=== PATIENT | female | born 1950 | race Caucasian/White ===

== ENCOUNTER → 2023-11-10 13:36 | Outpatient (REF) | payer MEDICARE, OTHER, SELFPAY | LOC: RAD 13:36 | PROVIDERS: ATTENDING PHYSICIAN Internal Medicine Geriatric Medicine | DX: J20.9 Acute bronchitis, unspecified (principal) | CPT/HCPCS: 71046 ==

== ENCOUNTER 2023-12-27 12:56 | Emergency (ER) | payer MEDICARE, OTHER, SELFPAY ==
[2023-12-27 12:58] VITALS: BP 177/86
--- NOTE | 2023-12-27 13:37 | ED.GENMED ---
History of Present Illness
General
Chief Complaint: Head Injury
Source: patient and spouse
Exam Limitations: none
Time Seen by Provider: 12/27/23 13:18
Nursing documentation reviewed up to this point in time: agreed with
Travel History
Have you had any contact with someone who has COVID-19?: No
Do you have any symptoms of coronavirus? Fever > 100 degrees, chills, cough, shortness of breath, sore throat, loss of taste or smell, muscle aches, or headache?: No
History of Present Illness
History of Present Illness:
Patient is a 73-year-old female who presents to the ER with for evaluation of fall. Patient reports she tripped and fell on concrete 20 minutes ago landed on her head. She denies loss of consciousness. He did assist her up with patient's
grandchild. She denies any nausea vomiting . She does have a headache. SHe has some chronic neck issues and radiculopathy and has been followed by pain management.
She c/o feeling sore in upper back.
Past History
Past History
ED Past Medical History: Other (Prediabetes, hyperlipidemia)
Social History
Tobacco: Former smoker
Alcohol: Occasional
Family History
Family History: Other (Diabetes, coronary disease, breast cancer)
Review of Systems
Review of Systems
Allergies reviewed?: Yes
All Other Systems: ROS reviewed and negative except as documented in HPI and ROS
Constitutional: Reports no symptoms
ABD/GI: Denies nausea or vomiting
Musculoskeletal: Reports other (sore to neck/back )
Skin: Reports no symptoms
Neurological: Reports headache and other (hit head no loc )
Phy Exam
General Physical Exam
General Presentation: no apparent distress
General age: appears stated age
General Skin: warm and dry
General Habitus: normal
General Mental: alert
General Hydration: appears well hydrated
Neurological Exam
Neurological Exam: alert, oriented x3 and speech normal
[place] Coma Scale
Eye Opening: Spontaneous
Verbal Response: Oriented
Motor Response: Obeys Commands
GCS Total Score: 15
Cerebellar
Cerebellar Function: normal finger to nose
Musculoskeletal Exam
Musculoskeletal Exam: other (+ left frontal hematoma , no bony c spine tenderness tender throughout the upper trapezius region)
Skin Exam
Skin Exam: normal color and warm/dry
Psychiatric Exam
Psychiatric Exam: normal mood/affect
Course
Orders/Labs/Results
Orders:
Orders
12/27/23 13:[address] [CT Head W/o Iv Contrast] Urgent
Comment:
Reason For Exam: head injury d/t fall on concrete
12/27/23 14:10
Acetaminophen [Tylenol] 650 mg PO NOW STA
12/27/23 14:25
Cyclobenzaprine HCl [Flexeril] 10 mg PO NOW STA
Vital Signs
Initial and Last Documented VS:
Initial Vital Signs
Temp Pulse Resp BP Pulse Ox
99.1 F 85 20 177/86 100
12/27/23 12:58 12/27/23 12:58 12/27/23 12:58 12/27/23 12:58 12/27/23 12:58
Last Documented Vital Signs
Temp Pulse Resp BP Pulse Ox
99.1 F 78 19 145/90 100
12/27/23 12:58 12/27/23 14:47 12/27/23 14:47 12/27/23 14:47 12/27/23 12:58
MDM/Problems Addressed
Differential Diagnosis Includes:
not limited to:hematoma , intracranial injury
MDM/Problems Addressed:
Patient is a 73-year-old female who describes trip and fall. Patient is on aspirin only no other blood thinners. Patient has a significant frontal hematoma but denies any loss of consciousness no nausea vomiting. Patient did have a mild headache.
She is awake alert no acute distress with a normal neurologic exam. She has chronic neck issues and is concerned about having some muscular neck pain. She has no bony cervical spine tenderness on exam with normal neurological exam including
normal strength. She has been on cyclobenzaprine in the past and does request this will send a prescription to the pharmacy.
Patient is awake alert ambulatory with a steady gait here no acute distress stable for discharge home.
*Radiology
Radiology exam reviewed: radiology read reviewed
*Pulse Oximetry
Patient hypoxic: no
*Critical Care Note
Total Time (30-74mins, 75-104mins- exclusive of procedures): Not Applicable
ED Attending Note
-
Portions of this chart may have been created with voice recognition software.� Occasional wrong word or��sound alike� substitutions may have occurred due to the inherent limitations of voice recognition software.
Discharge Plan
Departure
Patient Disposition: Home (Routine Discharge)
Date of Disposition: 12/27/23
Time of Disposition: 14:12
Patient with high blood pressure during this ER visit?: Yes
Condition: Fair
Covid-19: Not Applicable
Discharge Problem:
Hematoma, Head injury
Instructions: Head Injury in Adults (DC), Contusion (DC)
Prescriptions:
New
cyclobenzaprine 10 mg tablet
10 mg PO TID PRN (Reason: muscle spasm) Qty: 10 0RF
Referrals:
UNKNOWN - PT DOES,NOT KNOW [Unknown Provider] -
Activity Restrictions/Additional Instructions:
Ice the affected area for the first 24 hours 20 minutes at a time several times a day. You may take Tylenol for discomfort. A prescription for Flexeril was sent to your pharmacy take as directed. This will cause drowsiness. Return if any
worsening of symptoms. follow-up with your family doctor the next 2 days reevaluation.
Discharge Date and Time
Print Language: FRISIAN
[2023-12-27] MEDS: TYLENOL 650 MG PO (14:20)
[2023-12-27] MEDS: FLEXERIL 10 MG PO (14:38)
[2023-12-27 14:47] VITALS: BP 145/90
== END 2023-12-27 14:20 | disposition home or self-care (01) ==
LOC: EMR 12:56
PROVIDERS: EMERGENCY PHYSICIAN Emergency Medicine; FAMILY PHYSICIAN Internal Medicine Geriatric Medicine
DX: S09.90XA Unspecified injury of head, initial encounter (principal); S00.03XA Contusion of scalp, initial encounter; M54.6 Pain in thoracic spine; M54.2 Cervicalgia; W01.0XXA Fall on same level from slipping, tripping and stumbling without subsequent striking against object, initial encounter; R03.0 Elevated blood-pressure reading, without diagnosis of hypertension; R73.03 Prediabetes; E78.5 Hyperlipidemia, unspecified; K21.9 Gastro-esophageal reflux disease without esophagitis; E03.9 Hypothyroidism, unspecified; Z87.891 Personal history of nicotine dependence
CPT/HCPCS: 99284; 70450

== ENCOUNTER 2024-01-06 17:00 | Emergency (ER) | payer MEDICARE, OTHER, SELFPAY ==
[2024-01-06 17:01] VITALS: BP 118/61
--- NOTE | 2024-01-06 18:23 | ED.GENMED ---
History of Present Illness
General
Chief Complaint: Headache
Source: patient, records and spouse
Exam Limitations: none
Time Seen by Provider: 01/06/24 17:41
Nursing documentation reviewed up to this point in time: agreed with
Travel History
Have you had any contact with someone who has COVID-19?: No
Do you have any symptoms of coronavirus? Fever > 100 degrees, chills, cough, shortness of breath, sore throat, loss of taste or smell, muscle aches, or headache?: No
History of Present Illness
History of Present Illness:
73-year-old female with a past medical history of hyperlipidemia, diabetes, GERD who presents to the emergency room accompanied by her for evaluation of headache. Of note patient was seen in this emergency room 12/27/2023 after mechanical
fall from ground-level with significant head trauma�at that time she had a CT head which was negative and was discharged home. She has had some facial ecchymosis which is improving. She says she has had a mild headache since the fall. Today she
says she took a nap and woke up around 2:30 PM with acute worsening of the headache�she describes an intense pressure sensation in her head. She came to the emergency room to be reassessed. She denies any nausea or vomiting. She says she has
chronic neck pain but does not have any acute change in this. She denies any other complaints today. She denies any additional falls or trauma.
Past History
Past History
ED Past Medical History: Other (Prediabetes, hyperlipidemia)
Social History
Tobacco: Former smoker
Alcohol: Occasional
Family History
Family History: Other (Diabetes, coronary disease, breast cancer)
Review of Systems
Review of Systems
All Other Systems: ROS reviewed and negative except as documented in HPI and ROS
Constitutional: Denies fever or chills
EENT: Denies sore throat
Respiratory: Denies trouble breathing
Cardiac: Denies chest pain
ABD/GI: Denies abdominal pain, nausea or vomiting
: Denies flank pain
Musculoskeletal: Reports neck pain (Chronic); Denies back pain
Neurological: Reports headache; Denies dizzy, weakness or numbness
Phy Exam
Physical Exam
Physical Exam:
General: Awake, alert, oriented x3; no acute distress
Head: Normocephalic, old appearing/improving periorbital ecchymosis as well as resolving forehead contusion/hematoma
Eyes: Conjunctiva normal, EOMI, pupils equal round and reactive to light bilaterally
Throat: Airway intact, handling secretions, tongue atraumatic
Neck: Trachea midline, no point tenderness in the midline cervical spine
Lungs: Clear to auscultation bilaterally, no wheezing, rales, rhonchi; occasional coughing
Heart: Regular rate and rhythm, no murmurs, gallops, or rubs
Abd: Soft, non distended, nontender
Neuro: Cranial nerves intact, speech is fluid, no motor or sensory deficits
Extremities: Warm and well-perfused
Scores
Heart Failure Risk
Heart Failure Risk Score: Not Applicable
Heart Score for Chest Pain Patients
STEMI patient?: Not applicable
Withdrawal Assessment of Alcohol
Withdrawal Assessment Completed?: Not applicable
Course
Orders/Labs/Results
Orders:
Orders
01/06/24 18:14
CT Cervical Spine W/o Iv Contr Urgent
Comment:
Reason For Exam: worsening headache s/p fall
CT Head W/o Iv Contrast Urgent
Comment:
Reason For Exam: worsening headache s/p fall
01/06/24 20:02
Acetaminophen [Tylenol] 1,000 mg PO NOW STA
Ketorolac [Toradol] 30 mg IM NOW STA
Vital Signs
Initial and Last Documented VS:
Initial Vital Signs
Temp Pulse Resp BP Pulse Ox
36.8 C 75 20 118/61 96
01/06/24 17:01 01/06/24 17:01 01/06/24 17:01 01/06/24 17:01 01/06/24 17:01
Last Documented Vital Signs
Temp Pulse Resp BP Pulse Ox
37.1 C 82 16 119/53 98
01/06/24 19:30 01/06/24 20:33 01/06/24 20:33 01/06/24 20:33 01/06/24 20:33
MDM/Problems Addressed
Differential Diagnosis Includes:
Delayed hemorrhage, concussion, high cervical spine injury, migraine, tension headache, dehydration, subarachnoid hemorrhage
MDM/Problems Addressed:
73-year-old female presents for evaluation of headache�had a fall 12/26 and was evaluated with CT head which was negative; has had mild headache since and had acute worsening at 2:30 PM today. Vital signs are normal here. Exam as above. Will check
CT head to rule out any signs of delayed bleed or subarachnoid hemorrhage (onset within 6 hours of presentation here, CT head should be highly sensitive for subacute subarachnoid hemorrhage). Will check CT of cervical spine as this was not
evaluated previously to rule out any high cervical spine fracture which might trigger her headache although she has no motor or sensory deficits in her extremities and denies any change in her neck pain. Will monitor closely reassess after the
above.
CT head and cervical spine negative for any acute pathology. Clinical reassessment patient still awake and alert but she is still complaining of headache. Will trial some Toradol and reassess.
After IM Toradol patient says her headache is greatly improved she is feeling much better. I think she is stable for discharge. Suspect likely mild concussion given her recent trauma. Spoke to her about brain rest, Tylenol/Motrin as needed.
Provided referral to neurology as an outpatient. Patient is very comfortable with this plan. All questions answered.
Chronic conditions affecting care:
Chronic neck pain
*Radiology
Radiology exam reviewed: radiology read reviewed
*Pulse Oximetry
Patient hypoxic: no
*Critical Care Note
Total Time (30-74mins, 75-104mins- exclusive of procedures): Not Applicable
Data Reviewed
Review of Other/Old Records Reveals: Records and Radiology Studies
Source: patient, records and spouse
ED Attending Note
-
Portions of this chart may have been created with voice recognition software.� Occasional wrong word or��sound alike� substitutions may have occurred due to the inherent limitations of voice recognition software.
Discharge Plan
Departure
Patient Disposition: Home (Routine Discharge)
Date of Disposition: 01/06/24
Time of Disposition: 21:27
Patient with high blood pressure during this ER visit?: No
Discharge Problem:
Headache, Concussion
Instructions: Headache, Adult (DC), Concussion, Adult ED
Prescriptions:
No Action
cyclobenzaprine 10 mg tablet
10 mg PO TID PRN (Reason: muscle spasm) Qty: 10 0RF
Referrals:
Blanquita Cosme DO [Active] - Call in 1-3 days for appt (Neurology)
Dave Michele MD [Family Provider] - Follow up in 2-3 days
Activity Restrictions/Additional Instructions:
Thank you for visiting the Emergency Department at [facility].
1. Please schedule a follow up appointment as directed. Call first thing tomorrow morning to make an appointment.
2. If indicated, please take your medications as instructed and indicated on discharge paperwork.
3. If any of your symptoms do not improve, or persist, or become more severe within 6-12 hours, please return to the emergency department for further care.
4. Please return to the emergency department if you develop a headache, neck pain/stiffness, fever greater than 100.4F, chest pain, shortness of breath, persistent nausea, vomiting, slurred speech, difficulty walking, numbness/tingling, weakness,
signs of infection or any other symptoms that are worrisome to you.
Please call [phone] if you have any questions.
Interventions
Interventions:
*Risk Screen - Suicide Last Done: 01/06/24 17:01
*General Assessment Last Done: 01/06/24 17:01
*Neglect/Abuse Screening Last Done: 01/06/24 17:01
*ED COVID-19 Vaccine History Last Done: 01/06/24 18:30
ED- Neurological Assessment Last Done: 01/06/24 19:31
Discharge Date and Time
Print Language: MOSOTHO
[2024-01-06 18:29] VITALS: BMI 26.4
[2024-01-06 19:30] VITALS: BP 122/64
[2024-01-06] MEDS: TYLENOL 1000 MG PO (20:19)
[2024-01-06] MEDS: TORADOL 30 MG IM (20:29)
[2024-01-06 20:33] VITALS: BP 119/53
[2024-01-06 21:51] VITALS: BP 116/61
== END 2024-01-06 21:56 | disposition home or self-care (01) ==
LOC: EMR 17:00
PROVIDERS: EMERGENCY PHYSICIAN Emergency Medicine; FAMILY PHYSICIAN Internal Medicine Geriatric Medicine
DX: R51.9 Headache, unspecified (principal); S06.0XAA Concussion with loss of consciousness status unknown, initial encounter; W19.XXXA Unspecified fall, initial encounter; E78.00 Pure hypercholesterolemia, unspecified; E11.9 Type 2 diabetes mellitus without complications; K21.9 Gastro-esophageal reflux disease without esophagitis; G89.29 Other chronic pain; Z80.3 Family history of malignant neoplasm of breast; Z82.49 Family history of ischemic heart disease and other diseases of the circulatory system; Z83.3 Family history of diabetes mellitus; Z87.891 Personal history of nicotine dependence
CPT/HCPCS: 99284; 96372; 70450; 72125

== ENCOUNTER → 2024-01-07 07:01 | Outpatient (REF) | payer MEDICARE, OTHER, SELFPAY | LOC: RAD 07:01 | PROVIDERS: ATTENDING PHYSICIAN Internal Medicine Geriatric Medicine | DX: R05.3 Chronic cough (principal); R91.8 Other nonspecific abnormal finding of lung field; Z87.898 Personal history of other specified conditions | CPT/HCPCS: 71250 ==

== ENCOUNTER → 2024-02-09 09:38 | Outpatient (REF) | payer MEDICARE, OTHER, SELFPAY ==
--- NOTE | 2024-02-09 10:55 | CARDSERVDEF ---
Echocardiogram with Definity completed after protocol screening completed. Allergies verified.
Patent IV site: __20 P new start 1st attempt LAC___
IV site flushed with 0.9% NaCl pre and post administration.
Diluted bolus method utilized to enhance visualization of ventricular beck.
Here for definity stress echo.
Total volume given: ___4.0 and 2.0 ml in divided doses
Patient tolerated all procedures well without complications.
== END ==
LOC: RCS 09:38
PROVIDERS: ATTENDING PHYSICIAN Internal Medicine Cardiovascular Disease; FAMILY PHYSICIAN Internal Medicine Geriatric Medicine
DX: I25.10 Atherosclerotic heart disease of native coronary artery without angina pectoris (principal); R07.89 Other chest pain
CPT/HCPCS: 93017; 93350; Q9957

== ENCOUNTER → 2025-05-16 13:00 | Outpatient (REF) | payer MEDICARE, OTHER, SELFPAY | LOC: REG 13:00 | PROVIDERS: ATTENDING PHYSICIAN Internal Medicine Geriatric Medicine | DX: R05.3 Chronic cough (principal) | CPT/HCPCS: 71046 ==

== ENCOUNTER → 2025-06-12 13:06 | Outpatient (REF) | payer MEDICARE, OTHER, SELFPAY | LOC: HWRAD 13:06 | PROVIDERS: ATTENDING PHYSICIAN Nurse Practitioner Family | DX: R91.8 Other nonspecific abnormal finding of lung field (principal) | CPT/HCPCS: 71250 ==